=== PATIENT | female | born 1990 | race Hispanic/Latino ===

== ENCOUNTER 2022-07-21 08:10 | Emergency (ER) | payer SELFPAY ==
[~2022-07-21] VITALS: Ht 154.9 cm; Wt 70.3 kg
[2022-07-21] MEDS ORDERED: KETOROLAC TROMETHAMINE 30 MG/ML VIAL IV STA (08:45)
[2022-07-21] MEDS ORDERED: METHOCARBAMOL750 MG PO (10:13)
[2022-07-21] MEDS ORDERED: NAPROXEN250 MG PO (10:13)
== END 2022-07-21 10:16 | disposition home or self-care (01) ==
LOC: ER 08:16
DX: S13.4XXA Sprain of ligaments of cervical spine, initial encounter (principal); W23.0XXA Caught, crushed, jammed, or pinched between moving objects, initial encounter; Y99.0 Civilian activity done for income or pay
CPT/HCPCS: 70450; 72125; 99284; J1885